=== PATIENT | male | born 1995 | race Caucasian/White ===

== ENCOUNTER 2022-05-10 21:17 | Emergency (ER) | payer BC ==
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
[2022-05-10 21:37] VITALS: O2SAT 98
[2022-05-10] MEDS ORDERED: BACIGUENT 30 GM TP SCH (22:00)
[2022-05-10 22:05] VITALS: BP 139/79; PULSE 67
== END 2022-05-10 22:07 | disposition home or self-care (01) ==
LOC: ED 21:17
DX: T22.111A Burn of first degree of right forearm, initial encounter (principal); X08.8XXA Exposure to other specified smoke, fire and flames, initial encounter
CPT/HCPCS: 99281

== ENCOUNTER 2025-03-05 17:37 | Emergency (ER) | payer BC ==
[2025-03-05 17:51] VITALS: BP 138/94; RESP 16; TEMP 97
--- NOTE | 2025-03-05 17:53 | ERPHSYRPT ---
- History of Present Illness Time Seen by Provider: 03/05/25 17:53 Source: patient, family Exam Limitations: no limitations Physician History: This is a 29-year-old white male patient who does not have a primary care provider and arrives by private vehicle to the emergency department accompanied by his spouse after injuring his right fourth digit. 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 Patient's tetanus status is up-to-date. He received a tetanus injection in 2021. Patient takes no medication and has no known drug allergies. Occurred: just prior to arrival Method of Injury: direct blow Quality: aching (Farm equipment), throbbing Severity of Pain-Max: moderate Severity of Pain-Current: moderate Extremities Pain Location: 4th finger: right Associated Symptoms: none Allergies/Adverse Reactions: No Known Drug Allergies Allergy (Verified 03/05/25 17:50) Hx Tetanus, Diphtheria Vaccination/Date Given: Yes (2021) Hx Influenza Vaccination/Date Given: No Travel Risk - International Travel Have you traveled outside of the country in past 3 weeks: No - Emerging Infectious Disease Are you exhibiting symptoms associated with any current EIDs: No - Review of Systems Constitutional: No Symptoms Eyes: No Symptoms Ears, Nose, & Throat: No Symptoms Respiratory: No Symptoms Cardiac: No Symptoms Abdominal/Gastrointestinal: No Symptoms Genitourinary Symptoms: No Symptoms Musculoskeletal: Injury (Right hand fourth digit tip crush injury) Skin: No Symptoms Neurological: No Symptoms Psychological: No Symptoms Endocrine: No Symptoms Hematologic/Lymphatic: No Symptoms Immunological/Allergic: No Symptoms All Other Systems: Reviewed and Negative - Past Medical History Pertinent Past Medical History: Yes GI Medical History: Hernia Other Medical History: GOUT - Past Surgical History Past Surgical History: Yes Gastrointestinal: Hernia Repair - Social History Smoking Status: Never smoker Exposure to second hand smoke: No Drug Use: none Patient Lives Alone: No - Nursing Vital Signs Nursing Vital Signs: Initial Vital Signs Temperature 97.0 F 03/05/25 17:51 Pulse Rate 88 03/05/25 17:51 Respiratory Rate 16 03/05/25 17:51 Blood Pressure 138/94 03/05/25 17:51 O2 Sat by Pulse Oximetry 97 03/05/25 17:51 Pain Scale Pain Intensity 7 - Physical Exam General Appearance: no apparent distress, alert, anxiety Eyes, Ears, Nose, Throat Exam: normal ENT inspection, moist mucous membranes Neck Exam: normal inspection, non-tender, supple, full range of motion Cardiovascular/Respiratory Exam: chest non-tender, no respiratory distress Abdominal Exam: non-tender Back Exam: normal inspection, normal range of motion, No CVA tenderness, No vertebral tenderness Shoulder Exam: normal inspection, non-tender, no evidence of injury, normal ROM Elbow/Forearm Exam: normal inspection, non-tender, no evidence of injury, normal ROM Wrist Exam: normal inspection, non-tender, no evidence of injury, normal ROM Hand Exam: normal ROM, bone tenderness (Right fourth digit), ecchymosis, nail injury (Left cuticle right fourth digit), soft tissue tenderness (Distal right fourth digit), swelling (No evidence of tendon injury. This digit is neurovascularly intact.), No laceration SpO2: 97 - Course Nursing assessment & vital signs reviewed: Yes Ordered Tests: Active Orders 24 hr Category Date Time Status FINGER(S) Stat Exams 03/05/25 17:49 Taken Medication Summary Discontinued Medications Generic Name Dose Route Start Last Admin Trade Name Clement PRN Reason Stop Dose Admin Cephalexin HCl 500 mg 03/05/25 18:33 03/05/25 18:42 Cephalexin Mh500 Mg Capsule PO 03/05/25 18:34 500 mg STAT ONE Administration Cephalexin HCl Confirm 03/05/25 18:41 Cephalexin Mh500 Mg Capsule Administered 03/05/25 18:42 Dose 500 mg .ROUTE .STK-MED ONE Ibuprofen 600 mg 03/05/25 18:33 03/05/25 18:42 Ibuprofen 600 Mg Tablet PO 03/05/25 18:34 600 mg STAT ONE Administration Ibuprofen Confirm 03/05/25 18:41 Ibuprofen 600 Mg Tablet Administered 03/05/25 18:42 Dose 600 mg .ROUTE .STK-MED ONE Oxycodone/Acetaminophen 1 tab 03/05/25 18:33 03/05/25 18:42 Oxycodone Hcl/Apap 5 Mg/325 Mg Tablet PO 03/05/25 18:34 1 tab STAT STA Administration Oxycodone/Acetaminophen Confirm 03/05/25 18:41 Oxycodone Hcl/Apap 5 Mg/325 Mg Tablet Administered 03/05/25 18:42 Dose 1 tab .ROUTE .STK-MED ONE - Progress Progress: improved, pain not gone completely, re-examined Progress Note: 03/05/25 18:49 My medical decision making of the assignment of low complexity is based on review the patient's past medical history, review the patient's medication list, review the patient's drug allergy list, history present illness and physical findings on examination. The workup in this patient is x-ray of the patient's right hand fourth digit. Differential diagnosis includes but is not limited to crush injury, contusion, nailbed injury, tuft fracture I interpreted the preliminary reports of this patient's right hand x-ray fourth digit. There appears to be a nondisplaced fracture of the tuft of the right fourth digit. Counseled pt/family regarding: diagnosis, need for follow-up, rad results Medical Desision Making - Independent Historian Additional History obtained from: Spouse - Diagnostic Testing Diagnostic test were ordered, analyzed, and reviewed by me: Yes Radiological Interpretation: Interpreted by me, Teleradiologist Report - Risk of complications The pt has a mod risk of morbidity or mortality based on: Need for prescription drug management - Departure Departure Disposition: Home Clinical Impression: Closed fracture of tuft of distal phalanx of right ring finger Condition: Stable Critical Care Time: No Referrals: DOCTOR,NO FAMILY [Primary Care Provider, UNKNOWN] - Follow up/PCP as directed Additional Instructions: Rinse this site off tonight when you arrive at home with warm soapy water and then you may soak it twice a day. After each cleansing/soaking blot dry use a hairspring assembler and reapply nonstick bandage. Take your antibiotics as prescribed. Use ibuprofen 600 mg orally 3 times a day with food for 5 days. Return to the emergency department on Monday, March 07 for reevaluation. You may return sooner if you have any concerns. Prescriptions: Oxycodone HCl/Acetaminophen [Percocet 5-325 mg Tablet] 1 each PO Q8H PRN PRN #6 tablet MDD 3 PRN Reason: Moderate To Severe Pain Cephalexin Mh 500 mg [Keflex 500 mg] 500 mg PO TID #15 cap
[2025-03-05] MEDS ORDERED: PERCOCET TABLET 5/325MG ONE (18:41)
[2025-03-05] MEDS ORDERED: MOTRIN 600 MG ONE (18:41)
[2025-03-05] MEDS ORDERED: KEFLEX 500 MG ONE (18:41)
[2025-03-05] MEDS: MOTRIN 600 MG PO ONE (18:42)
[2025-03-05] MEDS: PERCOCET TABLET 5/325MG PO STA (18:42)
[2025-03-05] MEDS: KEFLEX 500 MG PO ONE (18:42)
[2025-03-05 18:56] VITALS: PULSE 84; O2SAT 98
--- NOTE | 2025-03-06 06:53 | XRAY ---
Indication: Crush injury. Comparison: None 3 view right 4th finger demonstrates nondisplaced tuft fracture. No other bony, articular, or soft tissue abnormalities.
== END 2025-03-05 19:00 | disposition home or self-care (01) ==
LOC: ED 17:37
DX: S62.664A Nondisplaced fracture of distal phalanx of right ring finger, initial encounter for closed fracture (principal); W23.0XXA Caught, crushed, jammed, or pinched between moving objects, initial encounter; Z79.891 Long term (current) use of opiate analgesic; Z79.899 Other long term (current) drug therapy
CPT/HCPCS: 73140; 99283; A9270-GY